=== PATIENT | female | born 1955 | race Two or more races ===

== ENCOUNTER 2021-10-11 07:30 | Inpatient (IN) | payer OTHER ==
[~2021-10-11] VITALS: Ht 162.6 cm; Wt 63.5 kg
== END 2021-10-14 17:12 | DRG 470 ==
LOC: O/R 10-12 05:55 → SURH 10-12 07:30 → SURG 10-12 15:39
PROVIDERS: ADMIT Orthopaedic Surgery; ATTEND Orthopaedic Surgery
PROC: 0SRD0J9 Replacement of Left Knee Joint with Synthetic Substitute, Cemented, Open Approach (ICD-10-PCS; principal; 2021-10-12 10:15)
DX: M17.12 Unilateral primary osteoarthritis, left knee (principal); D62 Acute posthemorrhagic anemia; M85.662 Other cyst of bone, left lower leg; Z20.822 Contact with and (suspected) exposure to COVID-19